=== PATIENT | female | born 1995 | race Caucasian/White ===

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

== ENCOUNTER 2017-08-17 05:58 | Day surgery (SDC) | payer BC ==
[~2017-08-17 05:58] MED LIST: Buffered Lidocaine 0.9% SYRIN* 5 ML/SYR SYRINGE INTRADERM ONE
[2017-08-17] MEDS ORDERED: ceFAZolin 2 GM PREMIX (*) 2 GM/50 ML BAG IVPB ONE (06:10)
[2017-08-17] MEDS ORDERED: Buffered Lidocaine 0.9% SYRIN* 5 ML/SYR SYRINGE ONE (06:10)
[2017-08-17] MEDS ORDERED: Bupivacaine 0.25% SDV* 30 ML ONE (06:52)
[2017-08-17] MEDS ORDERED: fentaNYL* 50 MCG/ML 2 ML VIAL (100 MCG VIAL) ONE (07:06)
[2017-08-17] MEDS ORDERED: Midazolam* 1 MG/ML 2 ML VIAL (2 MG) ONE ×2 (07:06)
[2017-08-17] MEDS ORDERED: Lidocaine 2% PF * 5 ML VIAL ONE (08:25)
[2017-08-17] MEDS ORDERED: Famotidine IV* 10 MG/ML 2 ML (20 mg) ONE (08:25)
[2017-08-17] MEDS ORDERED: Ketorolac INJ* 30 MG/ML 1 ML VIAL ONE (08:25)
[2017-08-17] MEDS ORDERED: Propofol* 10 MG/ML 20 ML BTL IV PUSH ONE (08:25)
[2017-08-17] MEDS ORDERED: DiMENhydriNATE IV* 50 MG/ML VIAL ONE (08:25)
[2017-08-17] MEDS ORDERED: Dexamethasone IV* 4 MG/ML 1 ML (4 MG) ONE (08:25)
[2017-08-17] MEDS ORDERED: ROPIVACAINE 5 MG/ML 30 ML BTL (0.5%) ONE (08:25)
[2017-08-17] MEDS ORDERED: HYDROmorphone INJ* 1 MG/ML CARPUJECT SYRINGE IV PRN (08:30)
[2017-08-17] MEDS ORDERED: Naloxone* 0.4 MG/ML 1 ML VIAL IV PRN (08:30)
[2017-08-17] MEDS ORDERED: PROCHLORPERAZINE INJ 5 MG/ML 2 ML VIAL IV PRN (08:30)
[2017-08-17] MEDS ORDERED: Nalbuphine* 20 MG/ML 1 ML VIAL IV PRN (08:30)
[2017-08-17] MEDS ORDERED: Ondansetron INJ* 2 MG/ML VIAL IV PRN (08:30)
[2017-08-17] MEDS ORDERED: Acetaminophen TAB* 325 MG PO PRN (08:30)
[2017-08-17] MEDS ORDERED: fentaNYL* 50 MCG/ML 2 ML VIAL (100 MCG VIAL) IV PRN (08:30)
[2017-08-17] MEDS ORDERED: PROCHLORPERAZINE INJ 5 MG/ML 2 ML VIAL ONE (09:33)
[2017-08-17] MEDS ORDERED: Scopolamine 1.5 mg* PATCH ONE (09:44)
[2017-08-17] MEDS ORDERED: Ondansetron ODT TAB* 4 MG SL PRN (09:51)
[2017-08-17] MEDS ORDERED: Ondansetron ODT TAB* 4 MG ONE (09:53)
[2017-08-17] MEDS ORDERED: Scopolamine 1.5 mg* PATCH TRANSDERM SCH (10:00)
[2017-08-17] MEDS ORDERED: Scopolamine PATCH Remove* 1 NOTE MISC PATCH OFF SCH (10:00)
--- NOTE | 2017-08-17 10:00 | OP ---
Operative Report - Blank - Operative Report Date of Operation: 08/17/17 Note: PATIENT: Kimberly Escobar DATE OF : 1995 DATE OF SURGERY: 08/17/2017 SURGEON: Judah Roberts MD PEWTER FINISHER: ELFEGO Sanchez, whos assistance was necessary for positioning, retraction, help with instrumentation, and closure. ANESTHESIOLOGIST: Dr. Rogers PREOPERATIVE DIAGNOSIS: Left ankle instability and peroneal tenosynovitis. POSTOPERATIVE DIAGNOSIS: Left ankle instability and peroneal tenosynovitis. OPERATION: 1. Left ankle modified Brostrom procedure lateral ligament reconstruction. 2. Left peroneal tendon exploration with peroneus longus and peroneus brevis tenolysis and excision of low-lying peroneus brevis muscle belly. ANESTHESIA: LMA + peripheral nerve block IMPLANTS: none TOURNIQUET TIME: Less than 1 hour with a well-padded calf tourniquet at 250mmHg SPECIMENS: none ESTIMATED BLOOD LOSS: minimal COMPLICATIONS: none STATUS: Stable from the operating room to the recovery room and then home. INDICATIONS FOR PROCEDURE: Kimberly has had persistent ankle instability and pain along her peroneals refractory to extensive non-operative treatment. Both operative and non operative treatment alternatives were reviewed. Further, the nature and risks of surgery were reviewed in careful detail, in the office as well as the pre- operative holding area. Our discussions regarding the risks of surgery included , but were not limited to, infection, wound problems, nerve injury, neuroma, RSD , persistent symptoms, recurrent instability, blood clot, failure of the surgery , and even the remote chance of catastrophic complication, including loss of limb. DESCRIPTION OF PROCEDURE: The patient was seen in the preoperative holding unit and informed written consent was obtained. The appropriate extremity was marked. The patient was then brought to the operating room and carefully positioned on the operating room table. Anesthesia was induced. All bony prominences were padded with great care. A chlorhexidine based pre-scrub was performed followed by a chloraprep prep and drape in standard sterile fashion. A surgical safety pause was then conducted in which we confirmed the appropriate patient, extremity, planned procedure, availability of equipment, indication and administration of prophylactic antibiotics, and DVT prophylaxis in the form of a compression boot on the non-surgical extremity. I began with placement of a sterile calf tourniquet 3 finger-breadths distal to the fibular neck. An Esmarch exsanguination of the limb was then performed and the tourniquet inflated. I utilized an incision overlying the peroneal tendons laterally. I carried the dissection down through the soft tissue to the level of the periosteum and superior peroneal retinaculum (SPR) with care taken to protect the sural nerve, which was not visualized during the procedure. I carefully incised the SPR off of the posterior fibula to expose the peroneal tendons. Dissection of the tendons was carried distally. The tendons were explored at this time for any tears. No discrete tears were appreciated but there was a large amount of inflamed tenosynovium and a tenolysis was performed for both the peroneus brevis and peroneus longus tendons. Additionally, there was a low-lying peroneus brevis muscle belly which was debrided and excised. At this point, I carefully inspected the peroneal groove at the posterior aspect of the fibula. This was deemed to have adequate depth so the decision was made not to perform a groove deepening procedure. So at this point I carefully planned out the repair of the superior peroneal retinaculum. I then reduced the tendons and they sat nicely in the retro-fibular groove. The wound was copiously irrigated. I repaired the SPR utilizing #1 Vicryl suture in a transosseous horizontal mattress suture pattern. I utilized multiple sutures for this repair, appropriately tensioning the SPR. I was able to pass a Warriormine under the repaired SPR without difficulty after the repair. I then dissected anteriorly to expose the anterolateral ankle ligaments. We protected the superficial peroneal nerve at all times, which was not visualized within our field. Once we had adequately exposed a pocket anterior to the ligaments, we sharply took the ligaments down off of the anterior and distal aspect of the fibula using a 15 blade. The inferior extensor retinaculum was exposed and protected for subsequent repair later in the procedure. I then utilized a rongeur to make a trough along the fibula to receive the reconstructed ligaments. I then utilized K-wires to drill holes in the fibula for a transosseous suture repair of the lateral ligaments utilizing a horizontal mattress suture. Multiple #1 Vicryl sutures were passed through the fibula and then through the ligaments and then back through the fibula. These sutures were all passed with great care taken to appropriately tension both the ATFL as well as the CFL in order to get a nice tight repair. We held the ankle in a dorsiflexed and everted position while the ligaments and sutures were tied down over the fibular bone bridges. These held the ankle in a much improved position with excellent tension on the ligaments. We then utilized a rotational flap from the periosteum overlying the distal fibula to augment the repair. This was sewn down using a horizontal mattress stich overlying the ATFL. We further augmented the repair by bringing the inferior extensor retinaculum up to the fibula. There was a much improved anterior drawer at this point as compared to pre-operatively. The wound was copiously irrigated. We then irrigated the wound copiously again. The wound was closed in a layered fashion utilizing 3-0 Monocryl and 3-0 nylon. A sterile dressing was then applied and the ankle was splinted in a neutral position. All needle and sponge counts were correct at the end of the case. The patient was awakened from anesthesia and transferred to the recovery room in stable condition. There were no complications. ATTESTATION: I attest I was present and scrubbed and performed the critical portions of the procedure myself. POST-OPERATIVE PLAN: The patient will remain [id number] for an anticipated duration of 6 weeks. Follow up will be in 2 weeks for likely suture removal and transition into a short leg cast.
[2017-08-17 11:29] VITALS: BP 121/70
== END 2017-08-17 11:28 | disposition home or self-care (01) ==
LOC: OR 05:58
PROVIDERS: ATTEND Orthopaedic Surgery
DX: M25.372 Other instability, left ankle (principal); M65.872 Other synovitis and tenosynovitis, left ankle and foot; G89.18 Other acute postprocedural pain; M76.72 Peroneal tendinitis, left leg; E66.01 Morbid (severe) obesity due to excess calories; D64.9 Anemia, unspecified; F41.9 Anxiety disorder, unspecified
CPT/HCPCS: 81025; A9270-GY; C1776; J0690; J0780; J1100; J1240; J1885; J2250; J2704; J2795; J3010

== ENCOUNTER 2017-11-17 07:49 | Emergency (ER) | payer BC ==
[2017-11-17 08:27] VITALS: BP 127/52
--- NOTE | 2017-11-17 09:03 | UC ---
Throat Pain/Nasal Rigoberto HPI - HPI Summary HPI Summary: 22 YO F C/O SORE THROAT X 2 DAYS. MILD PAIN. FEELS ILL/TIRED. NO VÁZQUEZ. FEELS CONGESTED. - History of Current Complaint Chief Complaint: UCGeneralIllness Stated Complaint: SORE THROAT,CHEST/HEAD CONGESTION Time Seen by Provider: 11/17/17 08:19 Hx Obtained From: Patient Hx Last Menstrual Period: END July Onset/Duration: Lasting Days Severity: Mild Pain Intensity: 7 - Epiglottits Risk Factors Epiglottis Risk Factors: Negative - Allergies/Home Medications Allergies/Adverse Reactions: Allergies Allergy/AdvReac Type Severity Reaction Status Date / Time No Known Allergies Allergy Verified 11/17/17 08:22 Home Medications: Home Medications Chlorpheniramine/Dextromethorp [Cough-Cold Tablet] 1 each PO ONCE 11/17/17 [ History Confirmed 11/17/17] PMH/Surg Hx/FS Hx/Imm Hx Other Respiratory History: NO HX ASTHMA Other History Of: Negative For: HIV, Hepatitis B, Hepatitis C, Anticoagulant Therapy - Surgical History Surgical History: Yes Surgery Procedure, Year, and Place: wisdom teeth removed 2013. L ankle surgery - Family History Known Family History: Positive: Cardiac Disease Negative: Hypertension, Diabetes - Social History Alcohol Use: Occasionally Substance Use Type: None Smoking Status (MU): Never Smoked Tobacco Have You Smoked in the Last Year: No - Immunization History Most Recent Influenza Vaccination: 2014 Vaccination Up to Date: Yes Review of Systems Constitutional: Other - FEELS ILL Skin: Negative Eyes: Negative ENT: Sore Throat Respiratory: Negative, Other - NO SPUTUM PRODUCTION Cardiovascular: Negative Gastrointestinal: Negative Genitourinary: Negative Motor: Negative Musculoskeletal: Negative Neurological: Negative Psychological: Negative Is Patient Immunocompromised?: No All Other Systems Reviewed And Are Negative: Yes Physical Exam Triage Information Reviewed: Yes Appearance: Ill-Appearing - MILDLY Vital Signs: Initial Vital Signs Temp 98.1 F 11/17/17 08:19 Pulse 87 11/17/17 08:19 Resp 17 11/17/17 08:19 BP 127/52 11/17/17 08:19 Pulse Ox 100 11/17/17 08:19 Vital Signs Reviewed: Yes Eye Exam: Normal ENT: Positive: Pharyngeal erythema Dental Exam: Normal Neck: Positive: Supple, Nontender Respiratory: Positive: Lungs clear, Normal breath sounds Cardiovascular: Positive: RRR Musculoskeletal Exam: Normal Neurological Exam: Normal Psychological Exam: Normal Skin Exam: Normal Throat Pain/Nasal Course/Dx - Course Course Of Treatment: STREP NEGATIVE. DISCUSSED SX TREATMENT. - Differential Dx/Diagnosis Provider Diagnoses: URI. PHARYNGITIS Discharge - Sign-Out/Discharge Documenting (check all that apply): Patient Departure - Discharge Plan Condition: Stable Disposition: HOME Patient Education Materials: Pharyngitis (ED), Upper Respiratory Infection (ED) Forms: *Work Release Referrals: Eloisa Acosta MD [Primary Care Provider] - Additional Instructions: FOLLOW UP WITH YOUR DOCTOR IF NOT COMPLETELY IMPROVED. GET RECHECKED FOR ANY WORSENING OF YOUR CONDITION OR QUESTIONS OR CONCERNS. - Billing Disposition and Condition Condition: STABLE Disposition: Home
== END 2017-11-17 09:09 | disposition home or self-care (01) ==
LOC: UCCORT 07:49
DX: K06.9 Disorder of gingiva and edentulous alveolar ridge, unspecified (principal); K02.9 Dental caries, unspecified
CPT/HCPCS: 87651; 99211; G0463

== ENCOUNTER 2019-01-07 20:17 | Emergency (ER) | payer BC, OTHER ==
[2019-01-07 20:58] VITALS: BP 134/76
--- NOTE | 2019-01-07 21:57 | UC ---
Lower Extremity/Ankle HPI - HPI Summary HPI Summary: 23-year-old female presents with complaints of left ankle pain. States around 6 :00 PM this evening she was playing basketball at work, jumped for a ball, and landed wrong causing an inversion injury to her right ankle. She has not been able to walk or bear weight since the injury. Complains of pain to the lateral aspect of the ankle. Pain worsens with any type of movement. Denies any numbness or tingling. - History of Current Complaint Chief Complaint: UCLowerExtremity Stated Complaint: RIGHT ANKLE INJURY Time Seen by Provider: 01/07/19 21:15 Hx Obtained From: Patient Hx Last Menstrual Period: mirena Pain Intensity: 7 - Allergies/Home Medications Allergies/Adverse Reactions: Allergies Allergy/AdvReac Type Severity Reaction Status Date / Time No Known Allergies Allergy Verified 01/07/19 20:58 Home Medications: Home Medications Ibuprofen TAB* [Advil TAB*] 800 mg PO ONCE 01/07/19 [History Confirmed 01/07/19] PMH/Surg Hx/FS Hx/Imm Hx Previously Healthy: Yes - Denies significant PMH Other History Of: Negative For: HIV, Hepatitis B, Hepatitis C, Anticoagulant Therapy - Surgical History Surgical History: Yes Surgery Procedure, Year, and Place: wisdom teeth removed 2013. L ankle surgery - Family History Known Family History: Positive: Cardiac Disease Negative: Hypertension, Diabetes - Social History Occupation: Employed Full-time Lives: With Family Alcohol Use: Weekly Substance Use Type: None Smoking Status (MU): Never Smoked Tobacco Have You Smoked in the Last Year: No - Immunization History Most Recent Influenza Vaccination: 2014 Vaccination Up to Date: Yes Review of Systems All Other Systems Reviewed And Are Negative: Yes Constitutional: Positive: Negative Skin: Negative: Bruising Respiratory: Positive: Negative Cardiovascular: Positive: Negative Gastrointestinal: Positive: Negative Genitourinary: Positive: Negative Motor: Negative: Weakness Neurovascular: Negative: Decreased Sensation Musculoskeletal: Positive: Other: - See HPI Neurological: Positive: Negative Is Patient Immunocompromised?: No Physical Exam - Summary Physical Exam Summary: GENERAL APPEARANCE: Well developed, well nourished, alert and cooperative, and appears to be in no acute distress. CARDIAC: Normal S1 and S2. No S3, S4 or murmurs. Rhythm is regular. There is no peripheral edema, cyanosis or pallor. Extremities are warm and well perfused. Capillary refill is less than 2 seconds. Peripheral pulses intact. LUNGS: Clear to auscultation without rales, rhonchi, wheezing or diminished breath sounds. ABDOMEN: Positive bowel sounds. Soft, nondistended, nontender. No guarding or rebound. No masses or hepatosplenomegally. MUSKULOSKELETAL: Normal muscular development. EXTREMITIES: Tenderness to the lateral malleolus with mild edema. No gross deformity or ecchymosis. No laxity of the ankle. Circulation and sensation intact. SKIN: Skin normal color, texture and turgor with no lesions or eruptions. Triage Information Reviewed: Yes Vital Signs: Initial Vital Signs Temp 97.8 F 01/07/19 20:50 Pulse 74 01/07/19 20:50 Resp 18 01/07/19 20:50 BP 134/76 01/07/19 20:50 Pulse Ox 97 01/07/19 20:50 Vital Signs Reviewed: Yes Diagnostics - Radiology No standard instances Radiology Interpretation Completed By: ED Physician - No acute fracture or dislocation Lower Extremity Course/Dx - Course Course Of Treatment: 23-year-old female presents with complaints of left ankle pain. States around 6 :00 PM this evening she was playing basketball at work, jumped for a ball, and landed wrong causing an inversion injury to her right ankle. She has not been able to walk or bear weight since the injury. Complains of pain to the lateral aspect of the ankle. Pain worsens with any type of movement. Denies any numbness or tingling. Afebrile. Vital signs stable. Patient had tenderness to the lateral malleolus with mild edema. No gross deformity or ecchymosis. No laxity of the ankle. Circulation and sensation intact. Remainder of exam was unremarkable. Preliminary reading of the x-ray showed no acute fracture or dislocation. He was placed in an Lucio wrap and stirrup splint by the RN. Recommending conservative treatment for a right ankle sprain including nonweightbearing 2 days followed by slow progressive increase in weightbearing as tolerated, [id number] analgesics, and RICE. Patient states that she has her own crutches at home. She is to follow-up with orthopedic surgery in 5- 7 days if symptoms are not improving. Anticipatory guidance and warning symptoms to reviewed with the patient. Verbalizes understanding and agrees with plan of care. - Differential Dx/Diagnosis Differential Diagnosis/HQI/PQRI: Contusion, Dislocation, Fracture (Closed), Sprain Provider Diagnosis: Right ankle sprain Discharge ED - Sign-Out/Discharge Documenting (check all that apply): Patient Departure All imaging exams completed and their final reports reviewed: No - Discharge Plan Condition: Stable Disposition: HOME Patient Education Materials: Ankle Sprain (ED), Crutch Instructions (ED), Ankle Stirrup Splint (ED) Referrals: No Primary Care Phys,NOPCP [Primary Care Provider] - Jed Estrada MD [Medical Doctor] - 5 Days (If no improvement. Call for appointment.) Additional Instructions: The x-ray performed in the clinic today showed no evidence of a fracture. Rest the ankle as much as possible. You should be non-weightbearing for the next 2 days than may progressively increase weightbearing as tolerated. Use the crutches you have at home. Apply ice to the affected area for 15-20 minutes at least 4 times a day to help with the pain and swelling. Elevate the leg to help reduce swelling. Take acetaminophen (Tylenol) or ibuprofen (Advil, Motrin) according to directions as needed for pain. Follow up with orthopedic surgery in 5-7days if symptoms do not improve. Call for appointment. Seek immediate medical attention if you have severe pain not managed with pain medication, you are unable to walk or bear any weight, develop numbness or tingling in the foot or toes, or have any worsening of symptoms. - Billing Disposition and Condition Condition: STABLE Disposition: Home
--- NOTE | 2019-01-08 07:35 | UC ---
- Progress Note Progress Note: xray report right ankle : IMPRESSION: SOFT TISSUE SWELLING, NO FRACTURE IS SEEN. Course/Dx - Diagnoses Provider Diagnoses: Right ankle sprain Discharge ED - Sign-Out/Discharge Documenting (check all that apply): Patient Departure All imaging exams completed and their final reports reviewed: Yes - Discharge Plan Condition: Stable Disposition: HOME Patient Education Materials: Ankle Sprain (ED), Crutch Instructions (ED), Ankle Stirrup Splint (ED) Referrals: Jed Estrada MD [Medical Doctor] - 5 Days (If no improvement. Call for appointment.) No Primary Care Phys,NOPCP [Primary Care Provider] - Additional Instructions: The x-ray performed in the clinic today showed no evidence of a fracture. Rest the ankle as much as possible. You should be non-weightbearing for the next 2 days than may progressively increase weightbearing as tolerated. Use the crutches you have at home. Apply ice to the affected area for 15-20 minutes at least 4 times a day to help with the pain and swelling. Elevate the leg to help reduce swelling. Take acetaminophen (Tylenol) or ibuprofen (Advil, Motrin) according to directions as needed for pain. Follow up with orthopedic surgery in 5-7days if symptoms do not improve. Call for appointment. Seek immediate medical attention if you have severe pain not managed with pain medication, you are unable to walk or bear any weight, develop numbness or tingling in the foot or toes, or have any worsening of symptoms. - Billing Disposition and Condition Condition: STABLE Disposition: Home
== END 2019-01-07 22:06 | disposition home or self-care (01) ==
LOC: UCCORT 20:17
DX: S93.402A Sprain of unspecified ligament of left ankle, initial encounter (principal); X50.0XXA Overexertion from strenuous movement or load, initial encounter; Y93.67 Activity, basketball; Y92.9 Unspecified place or not applicable
CPT/HCPCS: 99213; G0463